=== PATIENT | male | born 1985 | race Caucasian/White ===

== ENCOUNTER → 2017-03-02 | Emergency (ER) | payer MEDICAID, OTHER ==
[~2017-03-02] VITALS: Ht 167.6 cm; Wt 110.0 kg
[~2017-03-02] MED LIST: DOCU-144 PO
[2017-03-02 19:14] VITALS: Ht 167.6 cm; Wt 110.0 kg
--- NOTE | 2017-03-02 21:15 | ERD ---
ER Documentation Chief Complaint Chief Complaint Right lower abd pain, stated that it feels swellen x 1 week HPI 31-year-old male presents here to emergency department for complaints of right lower groin bump that started 2 weeks ago, it pops out whenever he lifts weight , some discomfort at times, denies any pain at this time. Patient denies any problems with urination or defecation. Patient denies any pain at this time. Patient describes occasional discomfort as sharp pain 4/10 scale, intermittent pain worse upon lifting heavy weights. Patient denies any hematuria or dysuria ROS All systems reviewed and are negative except as per history of present illness. Medications Home Meds Reported Medications [none] Unknown Strength No Conflict Check 03/02/17 Allergies Allergies: Coded Allergies: No Known Allergy (Unverified , 03/02/17) PMhx/Soc Medical and Surgical Hx: pt denies Medical Hx, pt denies Surgical Hx Hx Alcohol Use: Yes Hx Substance Use: No Hx Tobacco Use: No Smoking Status: Never smoker FmHx Family History: No coronary disease, No diabetes, No other Physical Exam Vitals Vital Signs Date Time Temp Pulse Resp B/P Pulse Ox O2 Delivery O2 Flow Rate FiO2 03/02/17 19:14 98.9 78 20 133/81 99 Physical Exam GENERAL: The patient is well developed and appropriate for usual state of health, in no apparent distress. CHEST: Clear to auscultation bilaterally. There are no rales, wheezes or rhonchi. HEART: Regular rate and rhythm. No murmurs, clicks, rubs or gallops. No S3 or S4. ABDOMEN: Soft, nontender and nondistended. Good bowel sounds. No rebound or guarding. No gross peritonitis. No gross organomegaly or masses. No Morrow sign or McBurney point tenderness. palpable reducible hernia noted in the right groin area, nontender on palpation BACK: No midline or flank tenderness. EXTREMITIES: Equal pulses bilaterally. There is no peripheral clubbing, cyanosis or edema. No focal swelling or erythema. Full range of motion. Grossly neurovascularly intact. NEURO: Alert and oriented. Cranial nerves 2-12 intact. Motor strength in all 4 extremities with 5/5 strength. Sensation grossly intact. Normal speech and gait. SKIN: There is no apparent rash or petechia. The skin is warm and dry. HEMATOLOGIC AND LYMPHATIC: There is no evidence of excessive bruising or lymphedema. No gross cervical, axillary, or inguinal lymphadenopathy. Results 24 hrs CLINICAL PROCEDURE: ULTRASOUND RIGHT GROIN CLINICAL INDICATION: 31-year of age, male. Mass right groin. Rule out hernia. TECHNIQUE: Multiple transverse and longitudinal muñiz scale images were performed of the right groin at the site of the patient's symptom with color Doppler. COMPARISON: None available FINDINGS: There is an echogenic structure in the right groin at the site of the patient's symptoms that is incompletely characterized with ultrasound. It is not clear if this represents bowel within a hernia, a bony exostosis or other mass. It measures approximately 1.7 x 3.9 cm. IMPRESSION: Nondiagnostic right groin ultrasound. Recommend either repeat evaluation with radiologist supervision or further evaluation with CT or MRI. RPTAT: HCTS Physician Jodee Date Time Electronically viewed and signed by Renuka Salcedo Physician on 03/02/2017 22: 00 CS/ CC: DARSHAN VENEGAS NP Procedures/MDM Medical decision making: There is a palpable structure on the right groin area, this was seen in the ultrasound, unknown characteristics at this time, no symptoms of any obstruction, no symptoms of any incarceration, nontender at this time, further evaluation by general surgeon outpatient was recommended, possible hernia. Patient does not have any symptoms of any incarceration, no symptoms of any abdominal emergencies, nonfebrile, no changes in bowel or bladder habits. Patient was advised to follow-up with primary care doctor in 2- 3 days for further evaluation of symptoms. Patient was advised to return to emergency department for any worsening. Prescription was given for Colace to avoid valsalva during defecation. Disposition: Home. Stable. Departure Diagnosis: Primary Impression: Groin lump Condition: Stable Patient Instructions: Hernia (Inguinal, Ventral, Umbilical) DARSHAN EVNEGAS NP Mar 02, 2017 21:15
--- NOTE | 2017-03-02 22:00 | RADRPT ---
CLINICAL PROCEDURE: ULTRASOUND RIGHT GROIN CLINICAL INDICATION: 31-year of age, male. Mass right groin. Rule out hernia. TECHNIQUE: Multiple transverse and longitudinal muñiz scale images were performed of the right groin at the site of the patient's symptom with color Doppler. COMPARISON: None available FINDINGS: There is an echogenic structure in the right groin at the site of the patient's symptoms that is inc ompletely characterized with ultrasound. It is not clear if this represents bowel within a hernia, a bony exostosis or other mass. It measures approximately 1.7 x 3.9 cm. IMPRESSION: Nondiagnostic right groin ultrasound. Recommend either repeat evaluation with radiologist supervisio n or further evaluation with CT or MRI. RPTAT: HCTS Physician Jodee Date Time Electronically viewed and signed by Physician Jodee on 03/02/2017 22:00 /
== END | disposition home or self-care (01) ==
LOC: FTE 19:06
DX: R19.09 Other intra-abdominal and pelvic swelling, mass and lump (principal)
CPT/HCPCS: 76536; Z7502